=== PATIENT | female | born 1995 | race Caucasian/White ===

== ENCOUNTER 2018-07-01 21:58 | Emergency (ER) | payer OTHER ==
[~2018-07-01] VITALS: Ht 160 cm; Wt 56.7 kg
[2018-07-01 22:03] VITALS: BP 126/85
--- NOTE | 2018-07-01 22:10 | NUR ---
PT AMBULATED TO BED 6 WITH VSS.
--- NOTE | 2018-07-01 22:30 | NUR ---
PT presented ER with c/o pain under left arm. Pt stated that she noticed it x 2 days ago.It was only one circular rash/open wound, and now there are a few more under the arm. UPON assessment, there is some sweling and reddness with an open wound. KNA and no previous medical HX.SKIN IS PINK/WARM/DRY; AAOX4 WITH EVEN AND STEADY GAIT;; HR EVEN AND REGULAR; PT DENIES ANY FEVER AT THIS TIME; PATIENT STATES PAIN OF 6/10 AT THIS TIME; VSS; PATIENT POSITIONED FOR COMFORT; HOB ELEVATED; BEDRAILS UP X2; BED DOWN. ER MD MADE AWARE OF PT STATUS.
--- NOTE | 2018-07-01 22:58 | NUR ---
PT SITTING UP IN BED. FAMILY AT BEDSIDE. VITAL STABLE.
[2018-07-02 00:04] VITALS: BP 126/85
--- NOTE | 2018-07-02 00:04 | NUR ---
Patient discharged with v/s stable. Written and verbal after care instructions given and explained. Patient alert, oriented and verbalized understanding of instructions. Ambulatory with steady gait. All questions addressed prior to discharge. ID band removed. Patient advised to follow up with PMD. Rx of DOXYCYCLINE, BACTRIM, MUPIROCIN WERE given. Patient educated on indication of medication including possible reaction and side effects. Opportunity to ask questions provided and answered.
== END 2018-07-02 00:04 | disposition home or self-care (01) ==
LOC: MED 21:58
DX: L73.9 Follicular disorder, unspecified (principal); B95.8 Unspecified staphylococcus as the cause of diseases classified elsewhere
CPT/HCPCS: 81002; 81025; 99283